=== PATIENT | male | born 1990 | race American Indian/Alaskan Native ===

== ENCOUNTER 2017-09-28 14:38 | Emergency (ER) | payer SELFPAY ==
[2017-09-28] MEDS ORDERED: MOTRIN PO ONE (15:53)
[2017-09-28] MEDS ORDERED: ZOFRAN ODT PO ONE (15:53)
[2017-09-28 16:15] LABS: Basophils % (Auto) 0.5 % (0.0-1.8); Eosinophils # (Auto) 0.1 K/mm3 (0.0-0.4); Eosinophils % (Auto) 1.2 % (0.0-4.3); Hematocrit 41.5 % (35.5-45.6); Hemoglobin 13.6 gm/dl (11.8-15.2); Lymphocytes # (Auto) 2.1 K/mm3 (1.2-5.4); Mean Corpuscular HGB Conc 33 % (32-34); Mean Corpuscular Hemoglobin 27 pg (28-32); Mean Corpuscular Volume 81 fl (84-94); Monocytes # (Auto) 0.4 K/mm3 (0.0-0.8); Monocytes % (Auto) 9.2 % (0.0-7.3); Platelet Count 225 K/mm3 (140-440); Red Blood Count 5.13 M/mm3 (3.65-5.03); Red Cell Distribution Width 15.7 % (13.2-15.2)
--- NOTE | 2017-09-28 16:21 | Emergency Department Report ---
ED Abdominal Pain HPI - General Chief Complaint: Abdominal Pain Stated Complaint: SEVERE STOMACH PAIN Time Seen by Provider: 09/28/17 15:46 Source: patient Mode of arrival: Ambulatory Limitations: No Limitations - History of Present Illness Initial Comments: 27-year-old male past medical history peptic ulcer disease presents with complaint of one week of intermittent epigastric abdominal pain. Patient states that pain is worse after eating certain types of foods including spicy food. Patient is awake alert and oriented 3. Denies chest pain palpitations shortness of breath nausea or vomiting. Patient states that he does eat a lot of spicy food and consumes alcohol several days week. Patient is also a smoker. MD Complaint: abdominal pain Onset/Timin -: week(s) Location: epigastric Radiation: epigastric Severity scale (0 -10): 8 - Related Data Previous Rx's Medication Instructions Recorded Last Taken Type Acetaminophen [Acetaminophen TAB] 500 mg PO Q6HR PRN #25 tablet 09/28/17 Unknown Rx Bismuth Subsalicylate 15 ml PO QID PRN #1 udc 09/28/17 Unknown Rx [Pepto-Bismol] Famotidine [Pepcid] 20 mg PO BID PRN #30 tablet 09/28/17 Unknown Rx Lansoprazole [Prevacid] 30 mg PO QDAY #44 capsule. 09/28/17 Unknown Rx Allergies Allergy/AdvReac Type Severity Reaction Status Date / Time No Known Allergies Allergy Unverified 09/28/17 14:43 ED Review of Systems ROS: Stated complaint: SEVERE STOMACH PAIN Other details as noted in HPI ED Past Medical Hx - Past Medical History Previous Medical History?: No - Surgical History Additional Surgical History: HAND - Social History Smoking Status: Current Every Day Smoker Substance Use Type: Alcohol - Medications Home Medications: Home Medications Medication Instructions Recorded Confirmed Last Taken Type Acetaminophen [Acetaminophen TAB] 500 mg PO Q6HR PRN #25 tablet 09/28/17 Unknown Rx Bismuth Subsalicylate 15 ml PO QID PRN #1 udc 09/28/17 Unknown Rx [Pepto-Bismol] Famotidine [Pepcid] 20 mg PO BID PRN #30 tablet 09/28/17 Unknown Rx Lansoprazole [Prevacid] 30 mg PO QDAY #44 capsule. 09/28/17 Unknown Rx ED Physical Exam - General Limitations: No Limitations General appearance: alert, in no apparent distress - Head Head exam: Present: atraumatic, normocephalic - Eye Eye exam: Present: normal appearance - ENT ENT exam: Present: mucous membranes moist - Neck Neck exam: Present: normal inspection - Respiratory Respiratory exam: Present: normal lung sounds bilaterally. Absent: respiratory distress - Cardiovascular Cardiovascular Exam: Present: regular rate, normal rhythm. Absent: systolic murmur, diastolic murmur, rubs, gallop - GI/Abdominal GI/Abdominal exam: Present: soft, normal bowel sounds - Rectal Rectal exam: Present: deferred - Extremities Exam Extremities exam: Present: normal inspection - Back Exam Back exam: Present: normal inspection - Neurological Exam Neurological exam: Present: alert, oriented X3 - Psychiatric Psychiatric exam: Present: normal affect, normal mood - Skin Skin exam: Present: warm, dry, intact, normal color. Absent: rash ED Course Vital Signs 09/28/17 14:43 Temperature 97.9 F Pulse Rate 81 Respiratory 18 Rate Blood Pressure 118/75 O2 Sat by Pulse 96 Oximetry ED Medical Decision Making - Lab Data Result diagrams: 09/28/17 15:58 09/28/17 15:54 - Medical Decision Making A/P: GERD, peptic ulcer disease 1-Prevacid, Maalox, Pepcid 2-I educated patient on foods that he should avoid with a history of peptic ulcer disease and GERD 3-I advised patient to return to the ED if he cannot tolerate any fluid or food by mouth or if he has any bloody vomitus or bloody stools or worse and severe pain with associated shortness of breath diaphoresis nausea vomiting fever or chills. Patient stated he understood my instructions 4-follow-up with primary care and gastroenterology 5- case discussed with Dr. Pack before discharge. Labs and ultrasound unremarkable, lipase negative Critical care attestation.: If time is entered above; I have spent that time in minutes in the direct care of this critically ill patient, excluding procedure time. ED Disposition Clinical Impression: Epigastric pain, Peptic ulcer disease Disposition: TO HOME OR SELFCARE Is pt being admited?: No Does the pt Need Aspirin: No Condition: Stable Instructions: Peptic Ulcer (ED), Gastritis (ED), Diet for Ulcers and Gastritis (ED), Gastroesophageal Reflux Disease (ED) Prescriptions: Acetaminophen [Acetaminophen TAB] 500 mg PO Q6HR PRN #25 tablet PRN Reason: Pain Bismuth Subsalicylate [Pepto-Bismol] 15 ml PO QID PRN #1 udc PRN Reason: Indigestion Famotidine [Pepcid] 20 mg PO BID PRN #30 tablet PRN Reason: Indigestion Lansoprazole [Prevacid] 30 mg PO QDAY #44 capsule. Referrals: [facility] [Provider Group] - 3-5 Days [facility] [Provider Group] - 3-5 Days Forms: Work/School Release Form(ED) Time of Disposition: 17:48
[2017-09-28 16:22] LABS: Alanine Aminotransferase 56 units/L (7-56); Albumin 4.5 g/dL (3.9-5); BUN/Creatinine Ratio 16; Blood Urea Nitrogen 14 mg/dL (9-20); Calcium 9.5 mg/dL (8.4-10.2); Hemolysis Index 10; Lipase 11 units/L (13-60)
--- NOTE | 2017-09-28 16:54 | Ultrasound Report ---
FINAL REPORT EXAM: US ABDOMEN LIMITED HISTORY: epigastric and RUQ pain TECHNIQUE: Grayscale and color doppler ultrasound imaging of the right upper quadrant was performed. PRIORS: None. FINDINGS: Liver: The liver is normal in echogenicity. No focal hepatic lesions or intrahepatic biliary ductal dilation. Hepatopetal flow is seen in the main portal vein. Gallbladder/Biliary system: No cholelithiasis, gallbladder wall thickening or pericholecystic fluid. The common bile duct measures 1.8 millimeters. Right kidney: The right kidney is normal in echogenicity without hydronephrosis, cyst, mass or calcification. The right kidney measures 9.2 x 5.4 x 4.8 centimeters. Pancreas: The visualized portions of the pancreas demonstrate no focal lesion. Aorta/IVC: The visualized portions of the abdominal aorta and IVC are normal in caliber. Free fluid: None. IMPRESSION: Normal right upper quadrant abdominal ultrasound.
[2017-09-28] MEDS ORDERED: ALUM-MAG HYDROX-SIMETH 200-200-20MG/5ML PO ONE (17:13)
[2017-09-28] MEDS ORDERED: PEPCID PO ONE (17:14)
[2017-09-28] MEDS ORDERED: LIDOCAINE VISCOUS 2% MM NR (17:15)
[2017-09-28 17:59] VITALS: BP 128/92
[2017-09-28] MEDS ORDERED: NORCO 5/325 PO ONE (18:04)
== END 2017-09-28 18:07 | disposition home or self-care (01) ==
LOC: ED 14:38
DX: K27.9 Peptic ulcer, site unspecified, unspecified as acute or chronic, without hemorrhage or perforation (principal); F17.200 Nicotine dependence, unspecified, uncomplicated
CPT/HCPCS: 36415; 76705; 80053; 83690; 85025; Q0162